=== PATIENT | female | born 1940 | race Caucasian/White ===

== ENCOUNTER → 2016-10-09 | Day surgery (SDC) | payer MEDICARE ==
[~2016-10-09] MED LIST: ACETAMINOPHEN 1000 MG/100 ML VIAL IV ONE; ARTIFICIAL TEARS OPTH OINT 3.5 APPLIC/3.5 GM TUBO ONE; BALANCED SALT SOLN OPHT IRRIG 15 ML BTL ONE; BUPIVACAINE/EPINEPHRINE 0.25% 50 ML VIAL ONE; LACTATED RINGER'S 1000 ML INJ 1,000 ML ONE; LIDOCAINE 1%/EPINEPHrine 1:100,000 SOLN 50 ML VIAL ONE; MIDAZOLAM HCL 2 MG/2 ML VIAL ONE; NEOMYCIN/POLYMYXIN/BACITRACIN OINT 15 GM TUBE ONE; ONDANSETRON HCL 4 MG/2 ML VIAL IV PUSH ONE; PROPOFOL 100 MG/10 ML INJ IV ONE; SODIUM CHLOR 0.9% 250 ML BAG IV ONE; VANCOMYCIN 500 MG VIAL ONE
--- NOTE | 2016-10-09 13:45 | TN ---
cc: DEIDRA BARNES M.D. DATE OF SURGERY: 10/09/2016 PREOPERATIVE DIAGNOSIS 1. Basal cell carcinoma located on the left lower eyelid. 2. Irritating acrochordon located on the right lower eyelid. PROCEDURE PERFORMED Wide local excision of the left basal cell carcinoma left lower eyelid. This resulted defect of 2 cm x 1-1/2 cm. This required a myocutaneous flap reconstruction based on the superior orbicularis oculi muscle for a secondary defect of 4 x 2-1/2 cm. The removal of the acrochordon was done in the linear fashion with a wedge resection with a defect of about 1 cm x 0.5 cm. A complex repair based on the location took place. PROCEDURE The patient was properly consented, marked, properly anesthetized. The skin was sterilized with Microcyn and sterile draping applied. 6 ccs of 1% lidocaine with epinephrine was mixed, was applied into the upper and lower left eyelid as well as the right lower eyelid. Excision was done of the left lower eyelid skin cancer, sent to pathology for frozen section. Although the margins were clear, close proximity of the tumor was done on the 12 o'clock area and further specimen was sent for permanent section. With this I proceeded and harvested a myocutaneous flap from the upper eyelid including the orbicularis oculi muscle protecting the levator aponeurosis. With this due to significant laxity of the lower eyelid a 5-0 clear Nylon was done to perform a lateral canthopexy of the lower eyelid, from the canthal laxity to the inner aspect of the superolateral orbital rim periosteum. From here I proceeded and performed the dissection and the transfer of the myocutaneous flap into the lower eyelid defect, secured utilizing 5-0 fast-absorbing gut. The upper eyelid defect was closed utilizing 6-0 Monocryl suture and a running 6-0 Prolene, secured the edges with Steri-Strips. Excellent viability of tissue was noted at the end of this case. Finally a wedge resection was done of the right lower eyelid where the acrochordon was and it was sutured in place utilizing the repair of the same anatomical layers utilizing fast-absorbing suture including the skin. Antibiotic ointment was applied. The patient was awakened, extubated in the operating room and transferred back to the postanesthesia care unit in stable condition. No complications were appreciated. The patient tolerated the procedure fairly well. MD KONSTANTIN Ramirze/EMMA /1:17 PM /1:28 PM RUBY
== END | disposition home or self-care (01) ==
LOC: ESDC 10:47
PROVIDERS: ATTEND Plastic Surgery
DX: C44.119 Basal cell carcinoma of skin of left eyelid, including canthus (principal); L91.8 Other hypertrophic disorders of the skin
CPT/HCPCS: 00300; 11200; 11642; 13151; 15732; 21282; 88305; 88331; J0131; J2250; J2405; J3010; J3370; J7050; J7120